=== PATIENT | male | born 1960 | race Two or more races ===

== ENCOUNTER 2025-03-13 06:00 | Day surgery (SDC) | payer MEDICAID, SELFPAY ==
--- NOTE | 2025-03-12 06:00 | EKG_ITS ---
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
[2025-03-12 07:41] VITALS: BMI 29.0
[2025-03-12 09:33] LABS: Basophils # (Auto) 0.0 Thou/mm3 (0.0-0.2); Basophils % (Auto) 0 % (0-2.5); Eosinophils # (Auto) 0.3 Thou/mm3 (0.0-0.5); Eosinophils % (Auto) 2 % (0-10); Hematocrit 44.6 % (41.0-53.0); Hemoglobin 15.2 g/dL (13.5-16.0); Immature Granulocytes Auto 0.06 Thou/mm3 (0.00-0.00); Lymphocytes # (Auto) 2.4 Thou/mm3 (1.0-4.8); Lymphocytes % (Auto) 22 % (10-50); Mean Corpuscular HGB Conc 34.1 g/dl (31.0-37.0); Mean Corpuscular Hemoglobin 31.3 pg (25.0-35.0); Mean Corpuscular Volume 92 fL (80-100); Monocytes # (Auto) 1.0 Thou/mm3 (0.0-0.8); Monocytes % (Auto) 9 % (0-12); Neutrophils # (Auto) 7.4 Thou/mm3 (1.8-7.7); Neutrophils % (Auto) 66 % (37-80); Nucleated Red Blood Cell # 0.00 Thou/mm3 (0.00-0.00); Nucleated Red Blood Cell % 0 /100 WBC (0); Platelet Count 400 Thou/mm3 (140-440); RDW Standard Deviation 43.7 fL (35.1-43.9); Red Blood Count 4.86 Miln/mm3 (4.50-5.90); White Blood Count 11.2 Thou/mm3 (3.8-10.6)
[2025-03-12 09:37] LABS: INR 1.0 (0.9-1.3); Partial Thromboplastin Time 29.6 Seconds (22.0-36.0); Prothrombin Time 11.2 Seconds (9.0-12.2)
[2025-03-12 09:47] LABS: Alanine Aminotransferase 33 U/L (10-49); Albumin, Serum 4.5 gm/dL (3.4-4.8); Albumin/Globulin Ratio 1.5 (1.2-2.2); Alkaline Phosphatase 79 U/L (46-116); Anion Gap 8 (7-16); Aspartate Amino Transferase 21 U/L (0-34); BUN/Creatinine Ratio 11 Ratio (12-20); Bilirubin,Total 0.7 mg/dL (0.3-1.2); Blood Urea Nitrogen 10 mg/dL (9-23); Calcium 10.0 mg/dL (8.3-10.6); Calcium (Corrected) 10.0 mg/dL (8.5-10.1); Carbon Dioxide 28.2 mMol/L (20.0-31.0); Chloride 102 mMol/L (98-107); Creatinine (Component) 0.9 mg/dL (0.6-1.3); Estimated Creatinine Clearance 88.3 mL/min (>60); Globulin 3.1 gm/dL (2.3-3.5); Glucose 109 mg/dL (74-106); Osmolality,Calculated 275 (275-295); Potassium 4.8 mMol/L (3.4-5.1); Sodium 138 mMol/L (136-145); Total Protein 7.6 gm/dL (5.7-8.2); eGFR > 60 See Note
[2025-03-13] VITALS (12 sets, daily range): BP systolic 99–125; BP diastolic 67–83; PULSE 64–73; RESP 13–20; TEMP 36.2–36.6; O2SAT 95–98; BMI 29.1
[2025-03-13] MEDS: RINGERS LACTATED 1000 ML 1,000 ML 20 ML IV (06:49)
--- NOTE | 2025-03-13 09:23 | PD.SUROPNT ---
Date of Procedure 03/13/25 Pre Op Diagnosis Symptomatic umbilical hernia Post Op Diagnosis Same Procedure Repair of the umbilical hernia with 1.7 inch Ventralex mesh Findings Patient was found to have a defect containing omentum and it measured about 2 cm in diameter and was oval Procedure Description The patient was brought to the operating room and 50 g was given. Abdomen was prepped with ChloraPrep solution and draped in a sterile manner. Then timeout was performed. Then I made a curved incision below the umbilicus after injecting it with half percent Marcaine plain. The skin edges were retracted with Yamini retractors and the sac was identified and opened. Sac was found to have omentum which was pristine. Then the excess sac was excised and the edges of the defect were defined. The defect measured about 2 cm in diameter and it was oval making it difficult to approximate primarily. Therefore I used a 1.[address] mesh and placed it inside after freeing the undersurface of any adhesions. I used a 2-0 Prolene sutures to attach the Marlex strap's to the edges. I also placed stitches on the other side of Marlex to firmly attached the mesh to the anterior abdominal wall. Then the subcutaneous tissue was closed with 3-0 plain and the skin was closed with 4-0 Monocryl and a dressing was applied with Adaptic and 4 x 4 gauze. Patient tolerated the procedure well and left operating room in stable condition. Anesthesia [employer] Implants 1.[address] mesh Pathology / specimen None Estimated Blood Loss 10 Surgeon Luh Berkowitz MD Surgical Staff Operation Date: 03/13/25 08:00 Case Staff Anesthesiologist: Dov Harris RN First Assistant: Laura Miranda
--- NOTE | 2025-03-13 09:25 | SUR.PHASEI ---
0916 Patient arrived to recovery resting comfortably in [facility], on oxygen 8L via oxy mask, breathing unlabored, vital signs stable, denies pain, dressing intact to abdomen; sutures, adaptic, gauze, medipore tape, no bleeding noted, denies nausea, report received from Dr. Harris and Matteo FENTON
--- NOTE | 2025-03-13 10:39 | SUR.PHASEII ---
1039 called patient family patient ready for discharge instructions, family states they are 45-1hr away
--- NOTE | 2025-03-13 11:51 | SUR.PHASEII ---
1151 Patient meets discharge criteria from recovery, awake and alert, breathing unlabored, vital signs stable, per patient his pain is mild and tolerable, dressing intact; no bleeding noted, voided in the restroom prior to discharge, able to dress himself into his clothing, discharge instructions given with the assistance of the telephone water supervisor Elle ID# [id number] to patient and his son, son signed discharge instructions. Patient given all his belongings prior to discharge, transported via wheelchair and left in a private vehicle.
== END 2025-03-13 11:51 | disposition home or self-care (01) ==
PROVIDERS: PCP Nurse Practitioner Family; Referring Provider Surgery; Visit Provider Surgery
PROC: (CPT 49591; principal; 2025-03-13 08:00)
DX: K42.9 Umbilical hernia without obstruction or gangrene (principal); Z01.810 Encounter for preprocedural cardiovascular examination; I10 Essential (primary) hypertension
CPT/HCPCS: 49591; 36415; 80053; 85025; 85610; 85730; 93005; A4217; A4649; C1781; J0131; J1100; J1885; J2250; J2405; J2704; J3010; J3490; J7120; A9270